=== PATIENT | male | born 1940 | race Caucasian/White ===

== ENCOUNTER 2018-01-25 11:33 | Day surgery (SDC) | payer MEDICARE ==
[~2018-01-25] VITALS: Ht 172.7 cm; Wt 89.9 kg
[~2018-01-25 11:33] MED LIST: AEROECLIPSE II1 EACH; ALBU90OI61; ALLO100; ASPI325 PO; ASPI81CH; BENTYL10 MG PO; CETI5; CILO100; CILO50; CLOP75 PO; DOXA2 PO; ERGO50000; FAMC500 PO; FLUSAL1005; LISI5 PO; LOPE2C; OXYACE5T PO; PANT20 PO
[2018-01-25] MEDS ORDERED: CHOL10002 (12:08)
== END 2018-01-25 13:46 | disposition home or self-care (01) ==
LOC: ORSCSDS 11:33
PROVIDERS: Internal Medicine Gastroenterology
PROC: 0DB58ZX Excision of Esophagus, Via Natural or Artificial Opening Endoscopic, Diagnostic (ICD-10-PCS; principal; 2018-01-25 13:00)
DX: K22.70 Barrett's esophagus without dysplasia (principal); K44.9 Diaphragmatic hernia without obstruction or gangrene; Z87.891 Personal history of nicotine dependence; J44.9 Chronic obstructive pulmonary disease, unspecified; I73.9 Peripheral vascular disease, unspecified; I12.9 Hypertensive chronic kidney disease with stage 1 through stage 4 chronic kidney disease, or unspecified chronic kidney disease; N18.3 Chronic kidney disease, stage 3 (moderate); Z79.01 Long term (current) use of anticoagulants; Z79.899 Other long term (current) drug therapy
CPT/HCPCS: 88305; J7120

== ENCOUNTER 2020-01-17 07:22 | Day surgery (SDC) | payer MEDICARE ==
[~2020-01-17] VITALS: Ht 172.7 cm; Wt 88.2 kg
[~2020-01-17 07:22] MED LIST changes: +CHOL10002; +Flonase 0.05% N16 GM; +Voltaren100 GM
--- NOTE | 2020-01-17 11:00 | NUR ---
01/17/20 1100 Rosette De La Rosa PT. TRANSFERRED TO CHAIR WITH STANDBY ASSISTANCE BY RN. VSS. O2 SAT. ABOVE 90 WITH RN ENCOURAGEMENT. SNACKS AND BEVERAGE NEARBY. TOLERATING WELL. POLAR PACK RUNNING. NO COMPLAINTS OF PAIN.
== END 2020-01-17 11:49 | disposition home or self-care (01) ==
LOC: ORSCSDS 07:22
PROVIDERS: Orthopaedic Surgery
PROC: 0RNK4ZZ Release Left Shoulder Joint, Percutaneous Endoscopic Approach (ICD-10-PCS; principal; 2020-01-17 09:00)
PROC: 0LS24ZZ Reposition Left Shoulder Tendon, Percutaneous Endoscopic Approach (ICD-10-PCS; principal; 2020-01-17 09:00)
PROC: 0LU24KZ Supplement Left Shoulder Tendon with Nonautologous Tissue Substitute, Percutaneous Endoscopic Approach (ICD-10-PCS; principal; 2020-01-17 09:00)
PROC: 0LQ24ZZ Repair Left Shoulder Tendon, Percutaneous Endoscopic Approach (ICD-10-PCS; principal; 2020-01-17 09:00)
DX: M75.122 Complete rotator cuff tear or rupture of left shoulder, not specified as traumatic (principal); M75.42 Impingement syndrome of left shoulder; M75.22 Bicipital tendinitis, left shoulder; I10 Essential (primary) hypertension; J44.9 Chronic obstructive pulmonary disease, unspecified; F17.210 Nicotine dependence, cigarettes, uncomplicated; Z79.899 Other long term (current) drug therapy
CPT/HCPCS: C1713; J0171; J0690; J2405; J2795; J3010; J7120

== ENCOUNTER → 2020-05-10 | Outpatient (CLI) | payer MEDICARE | END | disposition home or self-care (01) | LOC: LAB SHORT 08:05 → PLD 08:05 | DX: L57.0 Actinic keratosis (principal) | CPT/HCPCS: 88305 ==

== ENCOUNTER 2020-12-25 07:22 | Day surgery (SDC) | payer MEDICARE ==
[~2020-12-25] VITALS: Ht 172.7 cm; Wt 91.2 kg
[~2020-12-25 07:22] MED LIST changes: -ALLO100; +ALLO100 PO
== END 2020-12-25 09:40 | disposition home or self-care (01) ==
LOC: ORSCSDS 07:22
PROVIDERS: Ophthalmology
PROC: 08RJ3JZ Replacement of Right Lens with Synthetic Substitute, Percutaneous Approach (ICD-10-PCS; principal; 2020-12-25 08:45)
DX: H25.11 Age-related nuclear cataract, right eye (principal); I10 Essential (primary) hypertension; I25.10 Atherosclerotic heart disease of native coronary artery without angina pectoris; J44.9 Chronic obstructive pulmonary disease, unspecified; Z87.891 Personal history of nicotine dependence; K21.9 Gastro-esophageal reflux disease without esophagitis; Z79.899 Other long term (current) drug therapy; Z79.01 Long term (current) use of anticoagulants
CPT/HCPCS: J2001; J2250; J3010; J3301; J7040; V2632

== ENCOUNTER 2021-03-29 08:56 | Day surgery (SDC) | payer MEDICARE ==
[~2021-03-29] VITALS: Ht 172.7 cm; Wt 88.5 kg
--- NOTE | 2021-03-29 09:29 | NUR ---
03/29/21 0929 SAIRA HERNANDEZ ONE ATTEMPT IN RW BY RN STUDENT SECOND SUCCESSFUL BY RN IN RAC PT TOW
== END 2021-03-29 11:16 | disposition home or self-care (01) ==
LOC: ORSCSDS 08:56
PROVIDERS: Internal Medicine Gastroenterology
PROC: 0DB78ZX Excision of Stomach, Pylorus, Via Natural or Artificial Opening Endoscopic, Diagnostic (ICD-10-PCS; principal; 2021-03-29 10:00)
PROC: 0DBH8ZX Excision of Cecum, Via Natural or Artificial Opening Endoscopic, Diagnostic (ICD-10-PCS; principal; 2021-03-29 10:00)
PROC: 0DBC8ZX Excision of Ileocecal Valve, Via Natural or Artificial Opening Endoscopic, Diagnostic (ICD-10-PCS; principal; 2021-03-29 10:00)
PROC: 0DB58ZX Excision of Esophagus, Via Natural or Artificial Opening Endoscopic, Diagnostic (ICD-10-PCS; principal; 2021-03-29 10:00)
PROC: 0DBK8ZX Excision of Ascending Colon, Via Natural or Artificial Opening Endoscopic, Diagnostic (ICD-10-PCS; principal; 2021-03-29 10:00)
DX: K22.70 Barrett's esophagus without dysplasia (principal); R19.4 Change in bowel habit; Z86.010 Personal history of colon polyps; D12.0 Benign neoplasm of cecum; D12.2 Benign neoplasm of ascending colon; K22.8 Other specified diseases of esophagus; K31.7 Polyp of stomach and duodenum; K57.30 Diverticulosis of large intestine without perforation or abscess without bleeding; J44.9 Chronic obstructive pulmonary disease, unspecified; Z79.899 Other long term (current) drug therapy; Z79.02 Long term (current) use of antithrombotics/antiplatelets; Z87.891 Personal history of nicotine dependence
CPT/HCPCS: 88305; 88312; J2704; J7120

== ENCOUNTER 2021-09-16 12:15 | Day surgery (SDC) | payer MEDICARE ==
[~2021-09-16] VITALS: Ht 172.7 cm; Wt 90.5 kg
== END 2021-09-16 14:25 | disposition home or self-care (01) ==
LOC: ORSCSDS 12:15
PROVIDERS: Internal Medicine Gastroenterology
PROC: 0DJ08ZZ Inspection of Upper Intestinal Tract, Via Natural or Artificial Opening Endoscopic (ICD-10-PCS; principal; 2021-09-16 14:00)
DX: K22.70 Barrett's esophagus without dysplasia (principal); K22.89 Other specified disease of esophagus; I10 Essential (primary) hypertension; Z87.891 Personal history of nicotine dependence; Z79.899 Other long term (current) drug therapy
CPT/HCPCS: J2704; J7120

== ENCOUNTER → 2022-03-12 | Outpatient (CLI) | payer MEDICARE ==
[2022-03-12 10:13] LABS: Bun/Creatinine Ratio 17.6 (12.0-20.0); Creatinine, Blood 2.05 mg/dL (0.60-1.20); Potassium, Blood 4.3 mmol/L (3.5-5.5)
[2022-03-12 10:27] LABS: BASOPHILS ABSOLUTE AUTO 0.03 K/mm3 (0.00-0.23); BASOPHILS PERCENT AUTO 0 % (0-2); EOSINOPHILS ABSOLUTE AUTO 0.01 K/mm3 (0.00-0.68); EOSINOPHILS PERCENT AUTO 0 % (0-6); Hematocrit 32.7 % (37.0-53.0); IMMATURE GRAN ABSOLUTE AUTO 0.26 K/mm3 (0.00-0.10); IMMATURE GRAN PERCENT AUTO 3 % (0-1); LYMPHOCYTES ABSOLUTE AUTO 0.63 K/mm3 (0.84-5.20); LYMPHOCYTES PERCENT AUTO 7 % (21-46); MONOCYTES ABSOLUTE AUTO 1.22 K/mm3 (0.16-1.47); MONOCYTES PERCENT AUTO 13 % (4-13); Mean Corpuscular HGB 33.4 pg (26.0-34.0); Mean Corpuscular HGB Conc 33.6 g/dL (31.5-36.5); Mean Corpuscular Volume 99 fL (80-100); NEUTROPHILS ABSOLUTE AUTO 7.25 K/mm3 (1.96-9.15); NEUTROPHILS PERCENT AUTO 77 % (41-73); RDW Coefficient Variation 14.5 % (11.7-14.2); RDW Standard Deviation 52.7 fL (35.1-46.3); Red Blood Cell Count 3.29 M/mm3 (4.30-5.90)
[2022-03-12 11:04] LABS: Mean Platelet Volume 10.7 fL (9.1-12.4); Platelet Count 105 K/mm3 (150-400)
== END | disposition home or self-care (01) ==
LOC: LAB SHORT 10:03
PROVIDERS: Physician Assistant Surgical
DX: R06.09 Other forms of dyspnea (principal)
CPT/HCPCS: 80048; 83880; 84484; 85025

== ENCOUNTER 2022-03-13 06:20 | Inpatient (IN) | payer MEDICARE ==
[~2022-03-13] VITALS: Ht 172.7 cm; Wt 93.9 kg
[~2022-03-13 06:20] MED LIST changes: -ALBU90OI61; +ALBU90OI61 INH; -ASPI81CH; +Aspir 8181 MG PO; -LISI5 PO; -PANT20 PO; +PANT40 PO; +Prinivil10 MG PO
[2022-03-13 06:44] LABS: Hematocrit 33.3 % (37.0-53.0); Hemoglobin 10.9 g/dL (13.5-17.5); Mean Corpuscular HGB 33.4 pg (26.0-34.0); Mean Corpuscular HGB Conc 32.7 g/dL (31.5-36.5); Mean Corpuscular Volume 102 fL (80-100); Mean Platelet Volume 11.4 fL (9.1-12.4); Platelet Count 117 K/mm3 (150-400); RDW Coefficient Variation 14.4 % (11.7-14.2); RDW Standard Deviation 53.9 fL (35.1-46.3); Red Blood Cell Count 3.26 M/mm3 (4.30-5.90); White Blood Cell Count 13.37 K/mm3 (4.00-11.30)
[2022-03-13 06:58] LABS: Bun/Creatinine Ratio 17.8 (12.0-20.0); Calcium, Blood 7.9 mg/dL (8.5-10.1); Creatinine, Blood 1.97 mg/dL (0.60-1.20); Magnesium, Blood 1.2 mg/dL (1.6-2.4); Potassium, Blood 4.6 mmol/L (3.5-5.5)
[2022-03-13 07:00] LABS: Base Excess Venous -7.7 mmol/L; Bicarbonate Venous 18.5 mmol/L (24.0-30.0); PCO2 Venous 34.7 mmHg (38-42); PO2 Venous 44.7 mmHg (38-42); pH Blood Venous 7.33 (7.34-7.37)
[2022-03-13 07:04] LABS: BAND PERCENT MAN 6 % (0-8); BASOPHILS PERCENT MAN 0 % (0-2); EOSINOPHILS PERCENT MAN 0 % (0-6); LYMPHOCYTES PERCENT MAN 9 % (21-46); MONOCYTES ABSOLUTE MAN 1.06 K/mm3 (0.16-1.47); MONOCYTES PERCENT MAN 8 % (4-13); NEUTROPHILS ABSOLUTE MAN 11.09 K/mm3 (1.96-9.15); SEG NEUTROPHILS PERCENT MAN 77 % (41-73); TOTAL CELLS COUNTED 100
[2022-03-13 07:23] LABS: Influenza A, PCR NEGATIVE (NEGATIVE); Influenza B, PCR NEGATIVE (NEGATIVE); Resp Syncytial Virus, PCR NEGATIVE (NEGATIVE); SARS-Cov-2 (COVID-19) PCR, MMC NEGATIVE (NEGATIVE)
[2022-03-13 10:56] LABS: Source, Urine Clean Catch
--- NOTE | 2022-03-13 11:00 | NUR ---
pt arrived to 330 via gurney from ED, report was obtained, pt able to stand and transfer himself to the bed, a/ox3, pleasant and cooperative with care, follows commands well, oriened to room layout and call system, he was given tylenol for chest pain from coughing, reports that is gone now, he is diaphoretic, had a temp and that is normal now, lungs are clear in upper [place], course on exp in bases, resp even and unlabored at rest, currently on 2 liters 02 as he was 97% on 3l, reports an occational nonproductive cough, hrr, no edema noted, ppp+2, cap refill <3sec, vs stable, afebrile at this time, iv x2, s.l. sites are clear and patent, btx4, abd round soft nontender, voids without diff, skin c/w/moist, maew, lori, call light in reach.
[2022-03-13 11:01] LABS: Bilirubin, Urine Neg (Neg); Blood, Urine 4+ (Neg); Glucose Qualitative, Urine Neg (Neg); Ketones, Urine 2+ (Neg); Leukocyte Esterase, Urine Neg (Neg); Nitrite, Urine Neg (Neg); Protein, Urine 2+ (Neg); Specific Gravity, Urine 1.015 (1.003-1.022); Urobilinogen, Urine NORM (Normal)
[2022-03-13 11:10] LABS: Appearance, Urine Clear (Clear); Color, Urine Yellow (P-Yellow)
[2022-03-13 11:11] LABS: Bacteria Few /hpf; Squamous Epithelial Cells Rare /hpf (Few); White Blood Cells, Urine 0-2 /hpf (0-5)
[2022-03-13 11:12] LABS: Amorphous Light (0-Heavy)
--- NOTE | 2022-03-13 18:19 | NUR ---
pt has been able to ambulate to the bathroom with one assist, denies any complaints, or needs, no acute changes this shift. call light in reach.
--- NOTE | 2022-03-14 01:05 | NUR ---
2030 2L O2 REQUIRED TO MAINTAIN SAT > 92%. CORASE LUNGS. DYSPNEA WITH EXERTION. ABD DISTENTION NOTED. NO EDEMA. 0000 PATIENT AWOKE FEELING SOB "FEELS LIKE A BEAR IS HUGGING ME AND I CAN'T CATCH MY BREATH" PATIENT WITH FAINT WHEEZE TO BASES AUBIBLE WHEEZE UPPER LOBES. MD CONTACTED. FLUIDS STOPPED. TELE ORDERED. 0100 PATIENT WITH INCREASED WHEEZING, DYSPNEA AT REST. MD CONTACTED. NEW ORDERS OBTAINED. WCTM.
[2022-03-14 05:26] LABS: Hematocrit 30.3 % (37.0-53.0); Hemoglobin 10.1 g/dL (13.5-17.5); Mean Corpuscular HGB 33.4 pg (26.0-34.0); Mean Corpuscular HGB Conc 33.3 g/dL (31.5-36.5); Mean Corpuscular Volume 100 fL (80-100); Mean Platelet Volume 11.3 fL (9.1-12.4); Platelet Count 101 K/mm3 (150-400); RDW Coefficient Variation 14.5 % (11.7-14.2); RDW Standard Deviation 52.9 fL (35.1-46.3); Red Blood Cell Count 3.02 M/mm3 (4.30-5.90); White Blood Cell Count 10.87 K/mm3 (4.00-11.30)
[2022-03-14 05:57] LABS: BAND PERCENT MAN 14 % (0-8); BASOPHILS PERCENT MAN 0 % (0-2); EOSINOPHILS PERCENT MAN 0 % (0-6); LYMPHOCYTES ABSOLUTE MAN 0.76 K/mm3 (0.84-5.20); LYMPHOCYTES PERCENT MAN 7 % (21-46); MONOCYTES PERCENT MAN 1 % (4-13); MYELOCYTE PERCENT MAN 1 % (0-0); NEUTROPHILS ABSOLUTE MAN 9.89 K/mm3 (1.96-9.15); SEG NEUTROPHILS PERCENT MAN 77 % (41-73); TOTAL CELLS COUNTED 100
[2022-03-14 06:06] LABS: Albumin, Blood 2.6 g/dL (3.4-5.0); Albumin/Globulin Ratio 0.6 (0.8-1.8); Bilirubin, Total 0.4 mg/dL (0.1-1.0); Bun/Creatinine Ratio 22.2 (12.0-20.0); Calcium, Blood 7.8 mg/dL (8.5-10.1); Creatinine, Blood 1.62 mg/dL (0.60-1.20); Globulin, Blood 4.3 g/dL (2.2-4.0); Potassium, Blood 4.6 mmol/L (3.5-5.5); Total Protein, Blood 6.9 g/dL (6.4-8.2)
--- NOTE | 2022-03-14 07:48 | NUR ---
pt laying in bed with family at bedside, a/ox3, reports a really bad night, reports two episodes of not being able to breath, but is doing better now, he is a bit dyspnic, and becomes worse with activity, currently on 2 liters 02 via n/c, no cough noted, lungs have exp wheezing t/o, a bit course, dim in bases, hrr, tele in place running sr per monitor, see strip, no edema noted, ppp+2, cap refill <3sec, vs stable, afebrile, iv sites are clear and patent, btx4, abd round soft nontender, voids without diff, skin c/w/d, maew, lori, call light in reach.
--- NOTE | 2022-03-14 18:15 | NUR ---
pt resting quietly most of the day, states his breathing is getting better but did request a breathing tx this evening, no acute changes this shift, call light in reach.
--- NOTE | 2022-03-15 04:29 | NUR ---
SHIFT SUMMARY: PT IS A/OX4. O2: 2L. TELE: SR/78. INDEPENDENT. PT HAD SOME EARLY SHIFT C/O PAIN IN HIS SHOULDERS WHICH RESOLVED WITH PRN 650 MG OF TYLENOL. HE ALSO STATED HE HASN'T SLEPT IN DAYS, SO HE WAS GIVEN SOME PRN TRAZADONE. HE SEEMED TO GET SOME REST. PT ALSO STATED THAT HE HAD A ROUND OF LOOSE STOOLS SO HIS 2100 BOWEL MED WAS HELD. NO OTHER ACUTE CHANGES TO REP0RT THIS SHIFT. CALL LIGHT IS WITHIN REACH.
[2022-03-15 05:26] LABS: BASOPHILS ABSOLUTE AUTO 0.03 K/mm3 (0.00-0.23); BASOPHILS PERCENT AUTO 0 % (0-2); EOSINOPHILS PERCENT AUTO 0 % (0-6); Hematocrit 31.3 % (37.0-53.0); Hemoglobin 10.3 g/dL (13.5-17.5); IMMATURE GRAN ABSOLUTE AUTO 0.49 K/mm3 (0.00-0.10); IMMATURE GRAN PERCENT AUTO 5 % (0-1); LYMPHOCYTES ABSOLUTE AUTO 0.64 K/mm3 (0.84-5.20); LYMPHOCYTES PERCENT AUTO 6 % (21-46); MONOCYTES ABSOLUTE AUTO 0.72 K/mm3 (0.16-1.47); MONOCYTES PERCENT AUTO 7 % (4-13); Mean Corpuscular HGB 33.3 pg (26.0-34.0); Mean Corpuscular HGB Conc 32.9 g/dL (31.5-36.5); Mean Corpuscular Volume 101 fL (80-100); Mean Platelet Volume 10.7 fL (9.1-12.4); NEUTROPHILS ABSOLUTE AUTO 8.26 K/mm3 (1.96-9.15); NEUTROPHILS PERCENT AUTO 82 % (41-73); NRBC ABSOLUTE 0.02 K/mm3 (0.00-0.02); NRBC Auto 0.2 /100 WBC (0.0-0.2); Platelet Count 103 K/mm3 (150-400); RDW Coefficient Variation 14.6 % (11.7-14.2); Red Blood Cell Count 3.09 M/mm3 (4.30-5.90); White Blood Cell Count 10.14 K/mm3 (4.00-11.30)
[2022-03-15 05:41] LABS: Albumin, Blood 2.5 g/dL (3.4-5.0); Albumin/Globulin Ratio 0.6 (0.8-1.8); Bilirubin, Total 0.2 mg/dL (0.1-1.0); Bun/Creatinine Ratio 28.7 (12.0-20.0); Calcium, Blood 8.6 mg/dL (8.5-10.1); Creatinine, Blood 1.67 mg/dL (0.60-1.20); Globulin, Blood 4.1 g/dL (2.2-4.0); Potassium, Blood 4.7 mmol/L (3.5-5.5); Total Protein, Blood 6.6 g/dL (6.4-8.2)
--- NOTE | 2022-03-15 15:09 | NUR ---
PT'S DOCUMENTATION SHOWS THAT HE HAS AN IV IN HIS LEFT HAND. UPON MY EVALUATION, THERE IS NO IV IN HIS LEFT HAND, BUT THERE IS AN IV IN HIS RIGHT AC. IT IS SALINE LOCKED. THE IV WAS ASSESSED DURING MEDICATION ADMINISTRATION AND IT FLUSHES WELL. IT IS UNKNOWN WHEN THIS IV WAS PLACED.
--- NOTE | 2022-03-15 18:02 | NUR ---
SHIFT SUMMARY: PT IS A/O X4. HE IS ON O2 AT 2 L NC. HE IS INDEPENDENT BUT USES THE URINAL FOR CONVENIENCE. THE PATIENT REPORTED HAVING A HEADACHE, SO 650 MG OF TYLENOL WAS GIVEN. PT REPORTED THAT HE HAD SOME LOOSE STOOLS EARLY THIS MORNING/LAST NIGHT, SO HIS COLACE WAS HELD. PT WAS EVALUATED BY PT, WHO SAID THAT HE DID WELL BUT STILL HAS SOME SOB WITH EXERTION. PT WAS BEEN PLEASANT AND COOPERATIVE WITH CARE THROUGHOUT MY SHIFT. BED IS IN LOW POSITION AND CALL LIGHT WITHIN REACH.
--- NOTE | 2022-03-15 23:24 | NUR ---
AIRCRAFT LOG CLERK CHARTING REVIEW. I HAVE READ CHARTING AND VERIFIED MEDS. I AGREE WITH SAID DOCUMENTATION
--- NOTE | 2022-03-16 03:30 | NUR ---
LABOR LAW PROFESSOR SUMMARY PT ADMIT W/BILATERAL LOWER LOBE PNEUMONIA. PT ON 2L O2 NC AND CONTINUOUS PULSE OX MONITOR. PT IS INDEPENDENT. HX OF BPH, HTN, COPD, BARRETTS ESOPH, AND GERD. PT IS SOB W/ACTIVITY. COARSE AND DIMINISHED LUNG SOUNDS. ON TELE NORMAL SINUS 80 BPM. PT REPORTS BACK PAIN. RELIEVED W/ PRN TYLENOL AND HEATING PAD. PROVIDED PRN TRAZADONE FOR DIFFICULTY SLEEPING. PT ALERT/ORIENTED X4. CALL LIGHT IN REACH.
[2022-03-16 05:45] LABS: Hematocrit 30.7 % (37.0-53.0); Hemoglobin 10.3 g/dL (13.5-17.5); Mean Corpuscular HGB 33.4 pg (26.0-34.0); Mean Corpuscular HGB Conc 33.6 g/dL (31.5-36.5); Mean Corpuscular Volume 100 fL (80-100); Mean Platelet Volume 11.2 fL (9.1-12.4); NRBC ABSOLUTE 0.05 K/mm3 (0.00-0.02); NRBC Auto 0.6 /100 WBC (0.0-0.2); Platelet Count 117 K/mm3 (150-400); RDW Coefficient Variation 14.6 % (11.7-14.2); RDW Standard Deviation 53.1 fL (35.1-46.3); Red Blood Cell Count 3.08 M/mm3 (4.30-5.90); White Blood Cell Count 8.46 K/mm3 (4.00-11.30)
[2022-03-16 06:10] LABS: Bun/Creatinine Ratio 33.6 (12.0-20.0); Calcium, Blood 8.6 mg/dL (8.5-10.1); Creatinine, Blood 1.34 mg/dL (0.60-1.20)
[2022-03-16 06:21] LABS: BAND PERCENT MAN 4 % (0-8); BASOPHILS PERCENT MAN 0 % (0-2); EOSINOPHILS PERCENT MAN 0 % (0-6); LYMPHOCYTES ABSOLUTE MAN 0.08 K/mm3 (0.84-5.20); LYMPHOCYTES PERCENT MAN 1 % (21-46); METAMYELOCYTE ABSOLUTE MAN 0.16 K/mm3 (0.00-0.00); METAMYELOCYTE PERCENT MAN 2 % (0-0); MONOCYTES ABSOLUTE MAN 0.67 K/mm3 (0.16-1.47); MONOCYTES PERCENT MAN 8 % (4-13); MYELOCYTE ABSOLUTE MAN 0.08 K/mm3 (0.00-0.00); MYELOCYTE PERCENT MAN 1 % (0-0); NEUTROPHILS ABSOLUTE MAN 7.44 K/mm3 (1.96-9.15); SEG NEUTROPHILS PERCENT MAN 84 % (41-73); TOTAL CELLS COUNTED 100
--- NOTE | 2022-03-16 09:51 | NUR ---
VASCULAR ACCESS MANAGEMENT: PT HAS AN IV IN THE RIGHT AC. MEDICATIONS WERE GIVEN THROUGH IT AND IT FLUSHES WELL. DRESSING IS CLEAN, DRY, AND INTACT.
--- NOTE | 2022-03-16 18:10 | NUR ---
SHIFT SUMMARY: PT ADMITTED WITH BILATERAL LOWER LOBE PNEUMONIA AND SEPSIS. PT IS ON 2L NC AND CONTINUOUS PULSE OX MONITOR. PT IS INDEPENDENT AND USES URINAL AT BEDSIDE FOR CONVENIENCE. ON TELE, NSR. PATIENT IS A/O X4. PT CONTINUES TO HAVE SOME MILD SOB WITH EXERTION. IV IN RT ARM WAS LEAKING SOME, BUT FLUSHES WELL IF A WASHCLOTH IS PLACED ON THE ARM TO KEEP IT STRAIGHT DURING ABX ADMINISTRATION. HE HAS BEEN PLEASANT AND COOPERATIVE WITH CARE THROUGHOUT MY SHIFT. POSSIBLE DC TO SNF TOMORROW IF BED IS AVAILABLE. BED IS IN LOW POSITION AND CALL LIGHT WITHIN REACH. WILL GIVE REPORT TO CAR RENTAL SERVICE ATTENDANT.
--- NOTE | 2022-03-16 20:41 | NUR ---
PATIENT HAD A 10 BEAT RUN OF VTA, DR. DOUGHERTY NOTIFIED AND UPDATED ON VS AND MOST RECENT LABS, ORDERS OBTAINED FOR A BMP AND MAG TO BE DRAWN TONIGHT, ALSO OBTAINED ORDERS FOR OK TO REMOVE TELE FOR SHOWER PER PATIENT REQUEST
[2022-03-16 22:54] LABS: Calcium, Blood 9.5 mg/dL (8.5-10.1); Creatinine, Blood 1.41 mg/dL (0.60-1.20); Magnesium, Blood 1.9 mg/dL (1.6-2.4); Potassium, Blood 4.8 mmol/L (3.5-5.5)
[2022-03-17] MEDS ORDERED: CEFDINIR300 M4 PO (02:59)
--- NOTE | 2022-03-17 03:50 | NUR ---
SHIFT SUMMARY PATIENT RESTED THROUGHOUT MOST OF THE NIGHT, VSS, DENEIS PAIN AND SHORTNESS OF BREATH, PATIENT UP TO SHOWER THIS EVENING, INDEPENDENT WITHIN THE ROOM, REMAINS ON 2 L VIA NC, MINIMAL REQUESTS NOTED THIS SHIFT
[2022-03-17 05:38] LABS: Hematocrit 31.7 % (37.0-53.0); Hemoglobin 10.6 g/dL (13.5-17.5); Mean Corpuscular HGB 33.2 pg (26.0-34.0); Mean Corpuscular HGB Conc 33.4 g/dL (31.5-36.5); Mean Corpuscular Volume 99 fL (80-100); Mean Platelet Volume 11.1 fL (9.1-12.4); NRBC ABSOLUTE 0.12 K/mm3 (0.00-0.02); NRBC Auto 1.2 /100 WBC (0.0-0.2); Platelet Count 155 K/mm3 (150-400); RDW Coefficient Variation 14.5 % (11.7-14.2); RDW Standard Deviation 52.6 fL (35.1-46.3); Red Blood Cell Count 3.19 M/mm3 (4.30-5.90); White Blood Cell Count 9.88 K/mm3 (4.00-11.30)
[2022-03-17 06:17] LABS: Albumin, Blood 2.5 g/dL (3.4-5.0); Albumin/Globulin Ratio 0.6 (0.8-1.8); Bilirubin, Total 0.4 mg/dL (0.1-1.0); Bun/Creatinine Ratio 37.9 (12.0-20.0); Calcium, Blood 9.3 mg/dL (8.5-10.1); Creatinine, Blood 1.32 mg/dL (0.60-1.20); Globulin, Blood 4.2 g/dL (2.2-4.0); Potassium, Blood 4.8 mmol/L (3.5-5.5); Total Protein, Blood 6.7 g/dL (6.4-8.2)
[2022-03-17 06:44] LABS: BAND PERCENT MAN 2 % (0-8); BASOPHILS PERCENT MAN 0 % (0-2); EOSINOPHILS PERCENT MAN 0 % (0-6); LYMPHOCYTES ABSOLUTE MAN 0.59 K/mm3 (0.84-5.20); LYMPHOCYTES PERCENT MAN 6 % (21-46); METAMYELOCYTE ABSOLUTE MAN 0.19 K/mm3 (0.00-0.00); METAMYELOCYTE PERCENT MAN 2 % (0-0); MONOCYTES ABSOLUTE MAN 0.59 K/mm3 (0.16-1.47); MONOCYTES PERCENT MAN 6 % (4-13); SEG NEUTROPHILS PERCENT MAN 76 % (41-73); TOTAL CELLS COUNTED 100
[2022-03-17 06:45] LABS: MYELOCYTE ABSOLUTE MAN 0.79 K/mm3 (0.00-0.00); MYELOCYTE PERCENT MAN 8 % (0-0)
--- NOTE | 2022-03-17 09:51 | NUR ---
VASCULAR ACCESS MANAGEMENT: IV IN RT AC APPEARS WNL. WINDOW DRESSING IN PLACE. IT IS CLEAN, DRY, AND INTACT. UNSURE WHEN THIS IV WAS PLACED, THERE IS NO NOTE.
--- NOTE | 2022-03-17 18:17 | NUR ---
SHIFT SUMMARY: PT ADMITTED WITH BILATERAL LOWER LOBE PNEUMONIA AND SEPSIS. PT IS A/OX4. PT IS ON 2L NC AND CONTINUOUS PULSE OX MONITOR. PT IS INDEPENDENT AND CAN AMBULATE TO THE RESTROOM, BUT USES URINAL AT BEDSIDE FOR CONVENIENCE. ON TELE, NSR. IV ABX ADMINISTERED THIS MORNING. HAS SINCE CHANGED TO PO ABX. PT ABLE TO TAKE A SHOWER INDEPENDENTLY. HE HAS BEEN PLEASANT AND COOPERATIVE WITH CARE THROUGHOUT MY SHIFT. PATIENT EVAL'D BY PT, WHO RECOMMENDS THAT PT BE DC'D HOME WITH HOME HEALTH PHYSICAL THERAPY. BED IS IN LOW POSITION AND CALL LIGHT WITHIN REACH. WILL GIVE REPORT TO ELECTRICAL CONTROLS ENGINEER.
--- NOTE | 2022-03-17 19:29 | NUR ---
RECEIVED BEDSIDE REPORT FROM DANIELLE,BRITTON AND STUDENT. NO NEEDS AT THIS TIME. CALL LT IN REACH.
--- NOTE | 2022-03-17 21:49 | NUR ---
SNACK GIVEN TO PT. NO OTHER NEEDS. CALL LT IN REACH.
--- NOTE | 2022-03-18 00:41 | NUR ---
PT RESTING QUIETLY. CALL LT IN REACH.
--- NOTE | 2022-03-18 02:13 | NUR ---
PT RESTING QUIETLY. CALL LT IN REACH.
--- NOTE | 2022-03-18 03:48 | NUR ---
SHIFT SUMMARY: PT RESTED WELL DURING SHIFT. NO COMPLAINTS OF SOB. APPETITE GOOD. INDEPENDENT IN RM. SR AT 73 ON TELE. NO CARDIAC EVENTS. PT APPEARS TO BE READY FOR DISCHARGE. PORTABLE OXYGEN TANKS HAVE BEEN DELIVERED TO HIS ROOM. CURRENTLY ON 2L VIA NC. PT HAD NO COMPLAINTS DURING SHIFT. WILL CONTINUE TO PROVIDE CARE UNTIL SHIFT REPORT TO ONCOMING NURSE. CALL LT IN REACH.
--- NOTE | 2022-03-18 04:30 | NUR ---
CONTINUES TO REST QUIETLY. CALL LT IN REACH.
[2022-03-18] MEDS ORDERED: AMOCLA875 PO ×2 (11:55→12:00)
[2022-03-18] MEDS ORDERED: FURO20 PO ×2 (11:57→12:01)
[2022-03-18] MEDS ORDERED: TRAZ50 PO ×2 (11:58→12:03)
[2022-03-18] MEDS ORDERED: VISBIOME 112.51 EACH PO (12:05)
[2022-03-18] MEDS ORDERED: MEDROL4 M1 PO (12:15)
--- NOTE | 2022-03-18 14:57 | NUR ---
SHIFT SUMMARY & DC HOME RECEIVED REPORT ON PT AT 0715 THIS MORNING. ASSUMED CARE OF PT. A&OX4. IS ANTICIPATING DC HOME TODAY. NO COMPLAINTS AT THIS TIME. 1200PM: DC ORDERS RECIEVED FOR PT ANTICIPATED. PIV DC'D WITH TIP INTACT & SITE WNL'S. PT'S HOME O2 AT BEDSIDE. OCC THERAPY IN ROOM WITH PT. HELPED PT CHANGE INTO OWN CLOTHES. PT'S DTR HERE FOR RIDE HOME. DC INSTRUCTIONS GIVEN TO PT. ALL CONCERNS & QUESTIONS ANSWERED. PT OUT TO PRIVATE VEHICLE VIA W/C WITH ALL PERSONAL BELONGINGS.
== END 2022-03-18 13:04 | disposition home health service (06) | DRG 871 ==
LOC: ER 06:20 → MEDS 08:38
PROVIDERS: Hospitalist; Internal Medicine; Student in an Organized Health Care Education/Training Program; ADMIT Family Medicine
DX: A41.9 Sepsis, unspecified organism (principal); J18.9 Pneumonia, unspecified organism; J96.91 Respiratory failure, unspecified with hypoxia; J44.0 Chronic obstructive pulmonary disease with (acute) lower respiratory infection; N17.9 Acute kidney failure, unspecified; J44.1 Chronic obstructive pulmonary disease with (acute) exacerbation; N13.8 Other obstructive and reflux uropathy; E87.2 Acidosis; I95.9 Hypotension, unspecified; E83.42 Hypomagnesemia; Z20.822 Contact with and (suspected) exposure to COVID-19; K21.9 Gastro-esophageal reflux disease without esophagitis; N40.0 Benign prostatic hyperplasia without lower urinary tract symptoms; E78.5 Hyperlipidemia, unspecified; E86.0 Dehydration; K22.70 Barrett's esophagus without dysplasia; K57.90 Diverticulosis of intestine, part unspecified, without perforation or abscess without bleeding; I73.9 Peripheral vascular disease, unspecified; M13.841 Other specified arthritis, right hand; J30.9 Allergic rhinitis, unspecified; E66.9 Obesity, unspecified; M10.9 Gout, unspecified; N40.1 Benign prostatic hyperplasia with lower urinary tract symptoms; I12.9 Hypertensive chronic kidney disease with stage 1 through stage 4 chronic kidney disease, or unspecified chronic kidney disease; N18.30 Chronic kidney disease, stage 3 unspecified; R65.20 Severe sepsis without septic shock; Z68.31 Body mass index [BMI] 31.0-31.9, adult; Z91.09 Other allergy status, other than to drugs and biological substances; Z90.49 Acquired absence of other specified parts of digestive tract; Z98.1 Arthrodesis status; Z98.890 Other specified postprocedural states; Z85.820 Personal history of malignant melanoma of skin; Z88.2 Allergy status to sulfonamides; Z88.5 Allergy status to narcotic agent; Z91.010 Allergy to peanuts; Z79.82 Long term (current) use of aspirin; Z79.899 Other long term (current) drug therapy
CPT/HCPCS: 0241U; 36415; 71045; 80048; 80053; 81001; 82803; 83605; 83735; 83880; 84145; 85025; 87040; 93005; 93010; 93306; 94640; 94644; 94664; 94760; 94762; 96365; 96366; 96368; 96375; 97110; 97116; 97162; 97165; 97530; 97535; 99285-25; A9270; C9113; J0696; J1650; J2765; J2920; J2930; J3475; J7030; J7509

== ENCOUNTER → 2024-08-18 | Outpatient (CLI) | payer MEDICARE ==
[~2024-08-18] MED LIST changes: +AMOCLA875 PO; +CEFDINIR300 M4 PO; +FURO20 PO; +MEDROL4 M1 PO; +TRAZ50 PO; +VISBIOME 112.51 EACH PO
[2024-08-18 19:57] LABS: Hematocrit 41.8 % (37.0-53.0); Hemoglobin 13.8 g/dL (13.5-17.5); Mean Corpuscular HGB 33.7 pg (26.0-34.0); Mean Corpuscular Volume 102 fL (80-100); Mean Platelet Volume 11.3 fL (9.1-12.4); Platelet Count 122 K/mm3 (150-400); RDW Standard Deviation 55.6 fL (35.1-46.3); White Blood Cell Count 4.93 K/mm3 (4.00-11.30)
[2024-08-18 20:20] LABS: BAND PERCENT MAN 3 % (0-8); BASOPHILS ABSOLUTE MAN 0.04 K/mm3 (0.00-0.23); BASOPHILS PERCENT MAN 1 % (0-2); EOSINOPHILS ABSOLUTE MAN 0.09 K/mm3 (0.00-0.68); EOSINOPHILS PERCENT MAN 2 % (0-6); LYMPHOCYTES ABSOLUTE MAN 1.57 K/mm3 (0.84-5.20); LYMPHOCYTES PERCENT MAN 32 % (21-46); MONOCYTES ABSOLUTE MAN 0.24 K/mm3 (0.16-1.47); MONOCYTES PERCENT MAN 5 % (4-13); MYELOCYTE ABSOLUTE MAN 0.14 K/mm3 (0.00-0.00); MYELOCYTE PERCENT MAN 3 % (0-0); NEUTROPHILS ABSOLUTE MAN 2.81 K/mm3 (1.96-9.15); SEG NEUTROPHILS PERCENT MAN 54 % (41-73); TOTAL CELLS COUNTED 100
[2024-08-18 23:01] LABS: Alanine Aminotransfer (ALT/SGP 28 U/L (12-78); Albumin, Blood 3.8 g/dL (3.4-5.0); Albumin/Globulin Ratio 1.1 (0.8-1.8); Alk Phos 75 U/L (50-136); Anion Gap 11 mmol/L (3-11); Aspartate Aminotrans (AST/SGOT 24 U/L (12-37); Bilirubin, Total 0.6 mg/dL (0.1-1.0); Blood Urea Nitrogen 26 mg/dL (8-24); Bun/Creatinine Ratio 15.2 (12.0-20.0); CHOL/HDL RATIO 4.3; CO2, Blood 23 mmol/L (21-32); Calcium, Blood 9.2 mg/dL (8.5-10.1); Chloride, Blood 113 mmol/L (98-108); Cholesterol 164 mg/dL (50-200); Creatinine, Blood 1.71 mg/dL (0.60-1.20); Globulin, Blood 3.4 g/dL (2.2-4.0); Glomerular Filtration Rate 39 (60-); Glucose, Blood 136 mg/dL (70-99); HDL Cholesterol 38 mg/dL (>39); LDL/HDL RATIO 1.9; Low Density Lipoprotein Chol 74 mg/dL (0-110); Potassium, Blood 5.1 mmol/L (3.5-5.5); Sodium, Blood 142 mmol/L (136-145); Total Protein, Blood 7.2 g/dL (6.4-8.2); Triglycerides 260 mg/dL (30-160); Uric Acid, Blood 6.2 mg/dL (3.5-7.2); Very Low Density Lipoprot Chol 52 mg/dL (6-32)
== END | disposition home or self-care (01) ==
LOC: LAB SHORT 19:08 → LAB 19:08
PROVIDERS: Nurse Practitioner Family
DX: I10 Essential (primary) hypertension (principal); E78.2 Mixed hyperlipidemia; E21.3 Hyperparathyroidism, unspecified; E55.9 Vitamin D deficiency, unspecified; R53.83 Other fatigue; R73.03 Prediabetes
CPT/HCPCS: 80053; 80061; 82306; 83036; 83970; 84443; 84550; 85025

== ENCOUNTER → 2025-02-07 | Outpatient (CLI) | payer MEDICARE ==
[~2025-02-07] MED LIST changes: +ALBU90OI INH; +LISI5 PO; +Pred Mild5 ML UD; +Prinivil10 MG
[2025-02-07 13:49] LABS: Hematocrit 42.6 % (37.0-53.0); Hemoglobin 14.2 g/dL (13.5-17.5); Mean Corpuscular HGB 32.8 pg (26.0-34.0); Mean Corpuscular HGB Conc 33.3 g/dL (31.5-36.5); Mean Corpuscular Volume 98 fL (80-100); Mean Platelet Volume 11.6 fL (9.1-12.4); Platelet Count 116 K/mm3 (150-400); RDW Coefficient Variation 15.1 % (11.7-14.2); RDW Standard Deviation 53.3 fL (35.1-46.3); Red Blood Cell Count 4.33 M/mm3 (4.30-5.90); White Blood Cell Count 4.47 K/mm3 (4.00-11.30)
[2025-02-07 14:51] LABS: BASOPHILS PERCENT MAN 0 % (0-2); EOSINOPHILS ABSOLUTE MAN 0.13 K/mm3 (0.00-0.68); EOSINOPHILS PERCENT MAN 3 % (0-6); LYMPHOCYTES ABSOLUTE MAN 1.38 K/mm3 (0.84-5.20); LYMPHOCYTES PERCENT MAN 31 % (21-46); METAMYELOCYTE ABSOLUTE MAN 0.13 K/mm3 (0.00-0.00); METAMYELOCYTE PERCENT MAN 3 % (0-0); MONOCYTES ABSOLUTE MAN 0.44 K/mm3 (0.16-1.47); MONOCYTES PERCENT MAN 10 % (4-13); MYELOCYTE ABSOLUTE MAN 0.08 K/mm3 (0.00-0.00); MYELOCYTE PERCENT MAN 2 % (0-0); NEUTROPHILS ABSOLUTE MAN 2.27 K/mm3 (1.96-9.15); SEG NEUTROPHILS PERCENT MAN 51 % (41-73); TOTAL CELLS COUNTED 100
[2025-02-07 15:08] LABS: Uric Acid, Blood 6.7 mg/dL (3.5-7.2)
[2025-02-07 15:14] LABS: Bun/Creatinine Ratio 19.6 (12.0-20.0); C-REACTIVE PROTEIN, EXT RANGE 0.565 mg/dL (0.000-0.300); Creatinine, Blood 1.53 mg/dL (0.60-1.20); Potassium, Blood 5.6 mmol/L (3.5-5.5)
[2025-02-09 04:10] LABS: TISSUE TRANSGLUTAMINAS TTG,IGA 1.06 FLU (0.00-4.99)
== END ==
LOC: LAB SHORT 11:47 → LAB 11:47
PROVIDERS: Nurse Practitioner Family
DX: R19.7 Diarrhea, unspecified (principal); M10.9 Gout, unspecified
CPT/HCPCS: 80048; 84550; 85025; 86140; 86364

== ENCOUNTER 2025-07-13 18:10 | Inpatient (IN) | payer OTHER ==
[~2025-07-13] VITALS: Ht 172.7 cm; Wt 84.9 kg
[~2025-07-13 18:10] MED LIST changes: -Prinivil10 MG
[2025-07-13] MEDS ORDERED: Nitroglycerin 1 INCH/GM PKT TOP ONE (18:55)
[2025-07-13 19:02] LABS: Hematocrit 34.6 % (37.0-53.0); Hemoglobin 11.3 g/dL (13.5-17.5); Mean Corpuscular HGB Conc 32.7 g/dL (31.5-36.5); Mean Corpuscular Volume 106 fL (80-100); NRBC ABSOLUTE 0.00 K/mm3 (0.00-0.02); NRBC Auto 0.0 /100 WBC (0.0-0.2); Platelet Count 113 K/mm3 (150-400); RDW Coefficient Variation 15.8 % (11.7-14.2); RDW Standard Deviation 60.6 fL (35.1-46.3)
[2025-07-13 19:25] LABS: BAND PERCENT MAN 2 % (0-8); BASOPHILS ABSOLUTE MAN 0.00 K/mm3 (0.00-0.23); BASOPHILS PERCENT MAN 0 % (0-2); EOSINOPHILS ABSOLUTE MAN 0.05 K/mm3 (0.00-0.68); EOSINOPHILS PERCENT MAN 1 % (0-6); LYMPHOCYTES ABSOLUTE MAN 1.59 K/mm3 (0.84-5.20); LYMPHOCYTES PERCENT MAN 30 % (21-46); METAMYELOCYTE ABSOLUTE MAN 0.05 K/mm3 (0.00-0.00); METAMYELOCYTE PERCENT MAN 1 % (0-0); MONOCYTES ABSOLUTE MAN 0.53 K/mm3 (0.16-1.47); MONOCYTES PERCENT MAN 10 % (4-13); MYELOCYTE ABSOLUTE MAN 0.10 K/mm3 (0.00-0.00); MYELOCYTE PERCENT MAN 2 % (0-0); NEUTROPHILS ABSOLUTE MAN 2.97 K/mm3 (1.96-9.15); SEG NEUTROPHILS PERCENT MAN 54 % (41-73)
[2025-07-13 19:31] LABS: Alanine Aminotransfer (ALT/SGP 45.0 U/L (12-78); Albumin, Blood 3.3 g/dL (3.4-5.0); Albumin/Globulin Ratio 1.1 (0.8-1.8); Anion Gap 12.0 mmol/L (3-11); Aspartate Aminotrans (AST/SGOT 34.0 U/L (12-37); Bilirubin, Total 0.3 mg/dL (0.1-1.0); Blood Urea Nitrogen 35.0 mg/dL (8-24); CO2, Blood 22.0 mmol/L (21-32); Calcium, Blood 8.7 mg/dL (8.5-10.1); Chloride, Blood 109.0 mmol/L (98-108); Creatinine, Blood 1.7 mg/dL (0.60-1.20); Globulin, Blood 3.1 g/dL (2.2-4.0); Glucose, Blood 144.0 mg/dL (70-99); Potassium, Blood 5.5 mmol/L (3.5-5.5); Sodium, Blood 137.0 mmol/L (136-145); Total Protein, Blood 6.4 g/dL (6.4-8.2)
[2025-07-13] MEDS ORDERED: ALLO300 PO (22:37)
--- NOTE | 2025-07-13 23:59 | NUR ---
RECEIVED REPORT FROM SRIRAM SCHULTZ AT [id number]
[2025-07-14] VITALS (11 sets, daily range): BP systolic 118–148; BP diastolic 53–71
--- NOTE | 2025-07-14 00:11 | NUR ---
PT ARRIVED FROM ED TO 357 AT 0005. PT STAND BY ASSIST TO BED. WEIGHT IS 84.9 KG. PT LYING IN BED AT THIS TIME. WILL GIVE REPORT TO PRIMARY RN UPON HER RETURN.
--- NOTE | 2025-07-14 04:21 | NUR ---
PT AWOKE AND C/O 8/10 CHEST PRESSURE RADIATING TO BACK AND DIFFICULTY BREATHING. VS REMAIN UNCHANGED. DR. CHAVIS NOTIFIED- AWAIT ORDER FOR NITRO. PT ABLE TO AMBULATE TO BATHROOM WITHOUT CHANGE IN PAIN.
--- NOTE | 2025-07-14 04:57 | NUR ---
PT STATES RELIEF OF CHEST PRESSURE AND SOB AFTER NITRO GIVEN.
[2025-07-14 05:23] LABS: Anion Gap 9.0 mmol/L (3-11); Blood Urea Nitrogen 39.0 mg/dL (8-24); CO2, Blood 23.0 mmol/L (21-32); Calcium, Blood 8.8 mg/dL (8.5-10.1); Chloride, Blood 110.0 mmol/L (98-108); Creatinine, Blood 1.75 mg/dL (0.60-1.20); Glucose, Blood 120.0 mg/dL (70-99); Potassium, Blood 5.3 mmol/L (3.5-5.5); Sodium, Blood 137.0 mmol/L (136-145)
[2025-07-14] MEDS ORDERED: Nitroglycerin 1 INCH/GM PKT TOP ONE (06:00)
--- NOTE | 2025-07-14 06:16 | NUR ---
SHIFT SUMMARY PT ADMITTED TO ROOM 357 FROM ED FOR CHEST PAIN, ELEVATED BMP, COPD, BRONCHITIS. PT ON O2 AT 2LNC- USES AT HS AT HOME. PT ABLE TO REST UPON ARRIVAL TO UNIT, BUT C/O CHEST PRESSURE "SMOTHERING" PAIN X2. MEDICATED WITH SL NITRO- SEE PRIOR NOTES- WITH RELIEF THAT LASTED APPROX 1 HOUR. MEDICATED WITH NITRO PASTE AT 0609. PT ABLE TO TALK IN COMPLETE SENTENCES DURING PAIN EPISODES. VSS. HEART RHYTHM JUNCTIONAL MID 40-50'S PER TELE.
--- NOTE | 2025-07-14 08:01 | NUR ---
[facility] CALLED REPORTED THAT THEY PLAN ON DOING THE RESTING PORTION OF THE STRESS TEST TODAY ON THE PATIENT. HE MAY EAT BREAKAST AND BE NPO AFTERWARDS EXCEPT WATER IN PLANS FOR 1300 FOR THE TEST. DIET ORDERED SO PATIENT CAN EAT BREAKFAST AND HAVE A TRAY AFTERWARD FOR LUNCH ONCE FIRST PORTION OF TEST IS COMPLETE. PATIENT'S NITRO PASTE REMOVED AT 0749 PER REQUEST OF NUCLEAR MED.
[2025-07-14] MEDS ORDERED: Isosorbide Mononitrate 30 MG TABCR PO SCH (09:00)
[2025-07-14 12:07] LABS: Ferritin, Serum 102.0 ng/mL (26-388); Total Iron Binding Capacity 207.0 ug/dL (250-450)
[2025-07-14] MEDS ORDERED: Albuterol HFA200 ACT/6.7 GM INH INH PRN (16:30)
--- NOTE | 2025-07-14 17:01 | NUR ---
TELE CALLED THIS NURSE AT 1645 AND STATED THAT PT HR WAS IN THE 30'S. THIS NURSE WENT TO ASSESS PT. PT STATED THAT HE WAS DIZZY BUT DENIED CP. HR NOTED TO COME BACK UP TO MID 40'S AND VS NOTED TO BE WITHIN THE SAME RANGE THEY HAVE BEEN DURING THIS HOSPITAL STAY. THIS NURSE NOTIFIED PROVIDER WHOM STATED TO DC IMDUR AND WANTS TO CONT TO MONITOR PT.
--- NOTE | 2025-07-14 18:38 | NUR ---
SHIFT SUMMARY PT CONT LEVEL OF CARE. PT CONT TO REMAIN A&OX4 AND SBA WITH AMBULATION. PT HR NOTED TO HANG OUT IN THE 40'S THIS SHIFT ALL EXPECT FOR PREVIOUS NOTED INCIDENT SEE PRIOR NOTE FOR MORE DETAILS. PLAN IS FOR PT TO RECIEVE 2 PART OF STRESS TEST TOMORROW AT 0800. PT IS TO HAVE NO CAFFEINE, JAQUAN. OR NITRO AFTER 1900. PT IS TO BE NPO AFTER MIDNIGHT EXCEPT FOR WATER. BREAKFAST TRAY IS STILL ORDERED AND TO BE HELD PT IS TO RECIEVE IT AFTER HE IS COMPLETED WITH 2ND PORTION OF STRESS TEST IN THE AM.
[2025-07-15 03:12] VITALS: BP 116/63
[2025-07-15 04:59] LABS: Hematocrit 35.0 % (37.0-53.0); Hemoglobin 11.1 g/dL (13.5-17.5); Mean Corpuscular HGB Conc 31.7 g/dL (31.5-36.5); Mean Corpuscular Volume 108 fL (80-100); NRBC ABSOLUTE 0.02 K/mm3 (0.00-0.02); NRBC Auto 0.4 /100 WBC (0.0-0.2); Platelet Count 99 K/mm3 (150-400); RDW Coefficient Variation 15.9 % (11.7-14.2); RDW Standard Deviation 62.2 fL (35.1-46.3)
[2025-07-15 05:17] LABS: Alanine Aminotransfer (ALT/SGP 42.0 U/L (12-78); Albumin, Blood 3.3 g/dL (3.4-5.0); Albumin/Globulin Ratio 1.0 (0.8-1.8); Anion Gap 10.0 mmol/L (3-11); Aspartate Aminotrans (AST/SGOT 20.0 U/L (12-37); Bilirubin, Total 0.4 mg/dL (0.1-1.0); Blood Urea Nitrogen 41.0 mg/dL (8-24); CO2, Blood 25.0 mmol/L (21-32); Calcium, Blood 9.0 mg/dL (8.5-10.1); Chloride, Blood 106.0 mmol/L (98-108); Creatinine, Blood 2.1 mg/dL (0.60-1.20); Globulin, Blood 3.4 g/dL (2.2-4.0); Glucose, Blood 129.0 mg/dL (70-99); Potassium, Blood 5.1 mmol/L (3.5-5.5); Sodium, Blood 136.0 mmol/L (136-145); Total Protein, Blood 6.7 g/dL (6.4-8.2)
[2025-07-15 05:23] LABS: BAND PERCENT MAN 5 % (0-8); BASOPHILS ABSOLUTE MAN 0.00 K/mm3 (0.00-0.23); BASOPHILS PERCENT MAN 0 % (0-2); EOSINOPHILS ABSOLUTE MAN 0.11 K/mm3 (0.00-0.68); EOSINOPHILS PERCENT MAN 2 % (0-6); LYMPHOCYTES ABSOLUTE MAN 1.17 K/mm3 (0.84-5.20); LYMPHOCYTES PERCENT MAN 21 % (21-46); MONOCYTES ABSOLUTE MAN 0.66 K/mm3 (0.16-1.47); MONOCYTES PERCENT MAN 12 % (4-13); MYELOCYTE ABSOLUTE MAN 0.27 K/mm3 (0.00-0.00); MYELOCYTE PERCENT MAN 5 % (0-0); NEUTROPHILS ABSOLUTE MAN 3.34 K/mm3 (1.96-9.15); SEG NEUTROPHILS PERCENT MAN 55 % (41-73)
--- NOTE | 2025-07-15 05:56 | NUR ---
SHIFT SUMMARY PT SLEPT INTERMITTENTLY DURING THE NIGHT. C/O SOME SOB WITH ACTIVITY, BUT IMPROVED FROM THE PRIOR NIGHT. OOB WITH SBA. NPO EXCEPT FOR WATER AFTER MIDNIGHT FOR 2ND HALF OF STRESS TEST.
[2025-07-15 07:14] VITALS: BP 117/62
[2025-07-15] MEDS ORDERED: Ondansetron 4 MG SoluTab MM PRN (09:15)
[2025-07-15 12:34] VITALS: BP 134/60
[2025-07-15 16:20] VITALS: BP 142/62
--- NOTE | 2025-07-15 16:51 | NUR ---
NOTE: ATTEMPTED TO CONTACT ED, THE SON, TWICE WITH NO ANSWER ABOUT PT'S DISCHARGE STATUS. THE PT IS NOT TO DISCHARGE UNTIL 07/16 POSSIBLY.
--- NOTE | 2025-07-15 17:14 | NUR ---
SHIFT SUMMARY PT AOX3-4, GRAYLING. SBA TO THE BR. GOOD URINE OUTPUT. NAUSEA THIS AM, MEDICATED PER THE EMAR. FAMILY UPDATED. PT TO POSSIBLY DC TOMORROW, NO EVENTS PER TELE. PT HAS HAD NO COMPLAINTS THIS AFTERNOON. HE CALLS AND MAKES HIS NEEDS KNOWN. REPOSITIONS SELF IN BED. SON, ED, AT THE BS THIS SHIFT. UPDATED PRIOR TO HIS DEPARTURE. CALL LIGHT WITHIN REACH, BED LOCKED AND IN THE LOWEST POSITION. WILL REPORT TO ONCOMING NURSE.
--- NOTE | 2025-07-15 18:07 | NUR ---
NOTE: SPOKE WITH ED, PT'S SON, AND UPDATED HIM ON THE DISCHARGE PLAN. DR. DAVIS REITERATED THE PLAN EARLIER TO THE PT AND FAMILY, ALONG WITH THE RESIDENT ASSIGNED TO THE PT. NO FURTHER QUESTIONS AT THIS TIME.
[2025-07-15 20:39] VITALS: BP 125/60
[2025-07-15 23:44] VITALS: BP 118/54
[2025-07-16 03:36] VITALS: BP 116/58
[2025-07-16 04:50] LABS: Hematocrit 31.9 % (37.0-53.0); Hemoglobin 10.4 g/dL (13.5-17.5); Mean Corpuscular HGB Conc 32.6 g/dL (31.5-36.5); Mean Corpuscular Volume 107 fL (80-100); NRBC ABSOLUTE 0.00 K/mm3 (0.00-0.02); NRBC Auto 0.0 /100 WBC (0.0-0.2); Platelet Count 105 K/mm3 (150-400); RDW Coefficient Variation 15.8 % (11.7-14.2); RDW Standard Deviation 61.4 fL (35.1-46.3)
[2025-07-16 05:08] LABS: Anion Gap 8.0 mmol/L (3-11); Blood Urea Nitrogen 51.0 mg/dL (8-24); CO2, Blood 27.0 mmol/L (21-32); Calcium, Blood 8.6 mg/dL (8.5-10.1); Chloride, Blood 107.0 mmol/L (98-108); Creatinine, Blood 2.09 mg/dL (0.60-1.20); Glucose, Blood 112.0 mg/dL (70-99); Potassium, Blood 5.3 mmol/L (3.5-5.5); Sodium, Blood 137.0 mmol/L (136-145)
[2025-07-16 05:10] LABS: BAND PERCENT MAN 5 % (0-8); BASOPHILS ABSOLUTE MAN 0.00 K/mm3 (0.00-0.23); BASOPHILS PERCENT MAN 0 % (0-2); EOSINOPHILS ABSOLUTE MAN 0.04 K/mm3 (0.00-0.68); EOSINOPHILS PERCENT MAN 1 % (0-6); LYMPHOCYTES ABSOLUTE MAN 1.04 K/mm3 (0.84-5.20); LYMPHOCYTES PERCENT MAN 22 % (21-46); METAMYELOCYTE ABSOLUTE MAN 0.19 K/mm3 (0.00-0.00); METAMYELOCYTE PERCENT MAN 4 % (0-0); MONOCYTES ABSOLUTE MAN 0.47 K/mm3 (0.16-1.47); MONOCYTES PERCENT MAN 10 % (4-13); NEUTROPHILS ABSOLUTE MAN 2.99 K/mm3 (1.96-9.15); SEG NEUTROPHILS PERCENT MAN 58 % (41-73)
--- NOTE | 2025-07-16 06:23 | NUR ---
SHIFT SUMMARY PT SLEPT INTERMITTENTLY DURING THE NIGHT. SBA TO BATHROOM WITH STEADY GAIT. DENIES ANY FEELINGS OF CP OR PRESSURE. CONTINUES TO EXPERIENCE SOME SOB WITH ACTIVITY. TELE WITH ACCELERATED JUNTIONAL/ JUNCTIONAL RHYTHYM. IV FLUID INFUSING PER ORDER.
[2025-07-16 07:24] VITALS: BP 138/61
[2025-07-16 10:51] VITALS: BP 125/61
[2025-07-16 15:39] VITALS: BP 168/69
--- NOTE | 2025-07-16 18:29 | NUR ---
SHIFT SUMMARY PT AOX4, INDEPENDENT IN THE ROOM. DAUGHTER, BETO, AT THE BS TODAY WITH DR. DAVIS AND GIVEN UPDATE ON THE PLAN FOR DISCHARGE TOMORROW. LILY PATCH BEFORE DISCHARGE. PT CALLS AND MAKES HIS NEEDS KNOWN. NO ACUTE COMPLAINTS THIS SHIFT, NO EVENTS PER TELE. PT REPOSITIONS SELF IN BED. CALL LIGHT WITHIN REACH, BED LOCKED AND IN THE LOWEST POSITION. WILL REPORT TO ONCOMING NURSE.
[2025-07-16 19:38] VITALS: BP 122/59
[2025-07-16 23:50] VITALS: BP 141/59
[2025-07-17 03:41] VITALS: BP 133/69
[2025-07-17 05:12] LABS: Hematocrit 36.7 % (37.0-53.0); Hemoglobin 11.8 g/dL (13.5-17.5); Mean Corpuscular HGB Conc 32.2 g/dL (31.5-36.5); Mean Corpuscular Volume 107 fL (80-100); NRBC ABSOLUTE 0.00 K/mm3 (0.00-0.02); NRBC Auto 0.0 /100 WBC (0.0-0.2); Platelet Count 120 K/mm3 (150-400); RDW Coefficient Variation 15.5 % (11.7-14.2); RDW Standard Deviation 59.7 fL (35.1-46.3)
[2025-07-17 05:35] LABS: Alanine Aminotransfer (ALT/SGP 37.0 U/L (12-78); Albumin, Blood 3.3 g/dL (3.4-5.0); Albumin/Globulin Ratio 0.9 (0.8-1.8); Anion Gap 9.0 mmol/L (3-11); Aspartate Aminotrans (AST/SGOT 19.0 U/L (12-37); Bilirubin, Total 0.6 mg/dL (0.1-1.0); Blood Urea Nitrogen 49.0 mg/dL (8-24); CO2, Blood 29.0 mmol/L (21-32); Calcium, Blood 9.4 mg/dL (8.5-10.1); Chloride, Blood 106.0 mmol/L (98-108); Creatinine, Blood 2.12 mg/dL (0.60-1.20); Globulin, Blood 3.8 g/dL (2.2-4.0); Glucose, Blood 95.0 mg/dL (70-99); Potassium, Blood 5.4 mmol/L (3.5-5.5); Sodium, Blood 139.0 mmol/L (136-145); Total Protein, Blood 7.1 g/dL (6.4-8.2)
--- NOTE | 2025-07-17 05:49 | NUR ---
SHIFT SUMMARY PT SLEPT LONG INTERVALS DURING THE NIGHT. DENIES CP OR PRESSURE. STATES SOB WITH ACTIVITY IS MUCH IMPROVED. TELE SHOWING SR WITH BBB. PT INDEPENDENT TO BATHROOM. ANTICIPATING D/C HOME TODAY AFTER ZIO PATCH APPLIED.
[2025-07-17 06:09] LABS: BASOPHILS ABSOLUTE MAN 0.00 K/mm3 (0.00-0.23); BASOPHILS PERCENT MAN 0 % (0-2); LYMPHOCYTES ABSOLUTE MAN 1.40 K/mm3 (0.84-5.20); LYMPHOCYTES PERCENT MAN 31 % (21-46)
[2025-07-17 06:13] LABS: BAND PERCENT MAN 4 % (0-8); EOSINOPHILS ABSOLUTE MAN 0.09 K/mm3 (0.00-0.68); EOSINOPHILS PERCENT MAN 2 % (0-6); METAMYELOCYTE ABSOLUTE MAN 0.04 K/mm3 (0.00-0.00); METAMYELOCYTE PERCENT MAN 1 % (0-0); MONOCYTES ABSOLUTE MAN 0.45 K/mm3 (0.16-1.47); MONOCYTES PERCENT MAN 10 % (4-13); MYELOCYTE ABSOLUTE MAN 0.09 K/mm3 (0.00-0.00); MYELOCYTE PERCENT MAN 2 % (0-0); NEUTROPHILS ABSOLUTE MAN 2.45 K/mm3 (1.96-9.15); SEG NEUTROPHILS PERCENT MAN 50 % (41-73)
[2025-07-17 08:07] VITALS: BP 140/88
[2025-07-17 12:30] VITALS: BP 126/93
[2025-07-17] MEDS ORDERED: FERSU300 PO (14:50)
[2025-07-17] MEDS ORDERED: FORMOTEROL20 MCG/2 M INH (14:51)
[2025-07-17] MEDS ORDERED: Lasix40 MG PO (14:51)
[2025-07-17] MEDS ORDERED: GLYCOPYRROL INH (14:53)
--- NOTE | 2025-07-17 15:34 | NUR ---
PT DIACHARGED 1510, WHEELCHAIR OUT TO PRIVATE CAR FOR DC HOME. GIVEN DC INSTRUCTIONS. SET UP ZIO PATCH BEFORE DC, TO BE WORN FOR 2 WEEKS. PT VERBALIZES UNDERSTANDING OF ZIO USE AND WHAT TO DO WITH CARDIAC EVENTS. RX CALLED IN BY DR QUIJANO. PT AWARE HE IS TO F/ WITH BASIC METABOLIC PANAL IN 3-5 DAYS
== END 2025-07-17 15:10 | disposition home health service (06) | DRG 315 ==
LOC: ER 18:10 → MEDS 18:11 → ENPENDDIS 07-17 13:43 → MEDS 07-17 15:10
PROVIDERS: Emergency Medicine; Internal Medicine; Student in an Organized Health Care Education/Training Program; ADMIT Internal Medicine
DX: I27.23 Pulmonary hypertension due to lung diseases and hypoxia (principal); I13.0 Hypertensive heart and chronic kidney disease with heart failure and stage 1 through stage 4 chronic kidney disease, or unspecified chronic kidney disease; I50.32 Chronic diastolic (congestive) heart failure; N17.9 Acute kidney failure, unspecified; R07.89 Other chest pain; J44.9 Chronic obstructive pulmonary disease, unspecified; M10.9 Gout, unspecified; K22.70 Barrett's esophagus without dysplasia; D63.1 Anemia in chronic kidney disease; Z99.81 Dependence on supplemental oxygen; N18.32 Chronic kidney disease, stage 3b; R00.1 Bradycardia, unspecified; Z88.2 Allergy status to sulfonamides; Z88.5 Allergy status to narcotic agent; Z91.010 Allergy to peanuts; Z88.8 Allergy status to other drugs, medicaments and biological substances; Z79.899 Other long term (current) drug therapy; Z98.890 Other specified postprocedural states; Z98.1 Arthrodesis status; Z90.49 Acquired absence of other specified parts of digestive tract; Z60.2 Problems related to living alone
CPT/HCPCS: 36415; 71045; 71260; 78452; 80048; 80053; 82570; 82607; 82728; 82746; 83036; 83540; 83550; 83880; 84300; 84484; 85025; 85379; 93005; 93010; 93017; 93246; 93306; 96374; 96376; 99285-25; A9270; A9500; G0378; J0706; J1938; J2785; J7120; Q9967

== ENCOUNTER → 2025-10-09 | Outpatient (CLI) | payer OTHER ==
[~2025-10-09] MED LIST changes: +ALLO300 PO; +FERSU300 PO; +FORMOTEROL20 MCG/2 M INH; +GLYCOPYRROL INH; +Lasix40 MG PO
[2025-10-09 12:42] LABS: Campylobacter Sp Not Detected (NOT DETECT); E. Coli O157 Not Detected (NOT DETECT); Enteroaggregative E. coli-EAEC Not Detected (NOT DETECT); Enteropathogenic E. coli-EPEC Not Detected (NOT DETECT); Enterotoxigenic E. coli-ETEC Not Detected (NOT DETECT); Salmonella Sp Not Detected (NOT DETECT); Shiga Toxin-prod E. coli-STEC Not Detected (NOT DETECT); Shigella/Enteroin E. coli-EIEC Not Detected (NOT DETECT); Vibrio Sp Not Detected (NOT DETECT)
== END ==
LOC: LAB 08:30 → LAB SHORT 08:30
PROVIDERS: Nurse Practitioner Family
DX: R19.7 Diarrhea, unspecified (principal)
CPT/HCPCS: 87507